=== PATIENT | female | born 1975 | race Caucasian/White ===

== ENCOUNTER → 2019-03-02 | Outpatient (REF) | payer OTHER ==
[~2019-03-02] MED LIST: COLA100C2; IBUP800T; MILKSUS; VICO5TAB
[2019-03-02 20:17] LABS: BASO # 0.1 10^3/uL (0.0-0.2); BASO % 0.8 % (0.0-1.0); EOS # 0.1 10^3/uL (0.0-0.50); EOS % 1.3 % (0.0-3.0); HEMATOCRIT 42.7 % (36.0-47.0); HEMOGLOBIN 14.8 g/dl (12.0-15.5); LYMPH # 2.2 10^3/uL (1.5-4.5); MEAN CORPUSCULAR HEMOGLOBIN 33.1 pg (27.0-33.0); MEAN CORPUSCULAR HGB CONC 34.7 g/dl (32.0-36.5); MEAN CORPUSCULAR VOLUME 95.5 fl (80.0-96.0); MONO # 0.6 10^3/uL (0.0-0.8); MONO % 8.9 % (0.0-5.0); NEUTROPHILS # 3.4 10^3/uL (1.8-7.7); NEUTROPHILS % 53.7 % (36.0-66.0); PLATELET COUNT, AUTOMATED 337 10^3/uL (150-450); RED BLOOD COUNT 4.47 10^6/uL (4.00-5.40); WHITE BLOOD COUNT 6.4 10^3/uL (4.0-10.0)
[2019-03-02 20:20] LABS: APPEARANCE, URINE CLEAR (CLEAR); BACTERIA, URINE AUTO NEGATIVE (NEGATIVE); BILIRUBIN, URINE AUTO NEGATIVE (NEGATIVE); BLOOD, URINE BLOOD NEGATIVE (NEGATIVE); COLOR, URINE YELLOW (YELLOW); GLUCOSE, URINE (UA) AUTO NEGATIVE (NEGATIVE); KETONE, URINE AUTO TRACE mg/dL (NEGATIVE); LEUKOCYTE ESTERASE, URINE AUTO NEGATIVE (NEGATIVE); NITRITE, URINE AUTO NEGATIVE (NEGATIVE); PROTEIN, URINE AUTO NEGATIVE (NEGATIVE); RBC, URINE AUTO 0 /HPF (0-3); SPECIFIC GRAVITY URINE AUTO 1.021 (1.002-1.035); SQUAMOUS EPITHELIAL CELL UR AU 1 /HPF (0-6); UROBILINOGEN, URINE AUTO 0.2 mg/dL (0.0-2.0); WBC, URINE AUTO 0 /HPF (0-3)
[2019-03-02 20:22] LABS: BLOOD UREA NITROGEN 15 MG/DL (7-18); CALCIUM LEVEL 8.6 MG/DL (8.5-10.1); CARBON DIOXIDE LEVEL 28 MEQ/L (21-32); CHLORIDE LEVEL 107 MEQ/L (98-107); CREATININE FOR GFR 0.82 MG/DL (0.55-1.30); GLOMERULAR FILTRATION RATE > 60.0 (>58); GLUCOSE, FASTING 105 MG/DL (70-100); POTASSIUM SERUM 4.2 MEQ/L (3.5-5.1); SODIUM LEVEL 141 MEQ/L (136-145)
[2019-03-02 20:51] LABS: MALB URINE SIEMENS 6.7 MG/L; MAU/CREAT RATIO 4.9 MCG/MG (0.0-30.0); TOTAL PROTEIN,RANDOM URINE 9.7 MG/DL (0.0-12.0)
[2019-03-02 21:10] LABS: HEMOGLOBIN A1c 5.4 %
== END ==
LOC: M LABDRWAD 19:26
PROVIDERS: ATTEND Internal Medicine Nephrology
DX: Z00.5 Encounter for examination of potential donor of organ and tissue (principal)

== ENCOUNTER 2020-11-29 11:37 | Emergency (ER) | payer OTHER, BC ==
[~2020-11-29] VITALS: Ht 160 cm; Wt 59.1 kg
--- NOTE | 2020-11-29 12:25 | REP ---
INDICATION: right hand lac from box toe flanger stitchdowns COMPARISON: None. TECHNIQUE: Four views right hand. FINDINGS: There is no evidence of acute fracture, dislocation, or intrinsic bone disease.Bandaging material is seen on the medial right hand. There is no radiopaque foreign body in the soft tissues. IMPRESSION: No fracture or dislocation. No radiopaque foreign body in the soft tissues. <Electronically signed by Paul Light > 11/29/20 0775
[2020-11-29] MEDS ORDERED: LIDOCAINE W/EPINEPHRINE 1% 20ML VIAL SC ONE (12:35)
[2020-11-29 13:34] VITALS: BP 165/96
== END 2020-11-29 14:00 | disposition home or self-care (01) ==
LOC: M ED 11:37
DX: S61.411A Laceration without foreign body of right hand, initial encounter (principal); W26.8XXA Contact with other sharp object(s), not elsewhere classified, initial encounter; Y92.89 Other specified places as the place of occurrence of the external cause; Y93.89 Activity, other specified; Y99.8 Other external cause status

== ENCOUNTER → 2020-12-03 | Outpatient (CLI) | payer BC, OTHER ==
--- NOTE | 2020-12-03 10:46 | REP ---
INDICATION: LACERATION INJURY, ? ULNAR NERVE INJURY. Date of injury 29 Nov 2020. History provided is s/p suturing after 6 cm laceration longitudinally along the right hypothenar eminence and ulnar aspect of the right wrist. Reduced motor strength and reduced sensation 4th and 5th digits along the ulnar nerve distribution question ulnar nerve injury. COMPARISON: None. TECHNIQUE: Axial, coronal, and sagittal imaging planes utilized. T1 and T2 weighted sequences are included with without fat saturation. Sequences include turbo spin echo and gradient echo images. FINDINGS: Cortical and medullary bone signal intensity are normal. No evidence of occult fracture is seen. Carpal tunnel and its contents appear intact. Median nerve is unremarkable. Transverse carpal ligament appears intact. However, at the level of Guyon's canal there is thickening and some angulation with a superficial granulation tissue in the palm Rodney brevis a and along the soft tissue superficial to the ulnar nerve distribution. No fluid collection is seen. There is adjacent T2 weighted edema in the thenar soft tissues. No wes hematoma is seen. I am not able to identify a actual discontinuity in the ulnar nerve but the findings suggests that the laceration may have been at this level. No tendon disruption is appreciated. No MRI evidence of aneurysm is seen. Study is otherwise unremarkable. IMPRESSION: Soft tissue edema/slight deformity along the course of the ulnar artery at the level of Guyon's canal as above suggesting the location of recent soft tissue injury. The ulnar nerve is not identified in sufficient detail to ascertain aid whether a discontinuity exists. No tendon disruption is seen. <Electronically signed by Jovan Prajapati > 12/03/20 [id number]
--- NOTE | 2020-12-03 10:58 | REP ---
INDICATION: LACERATION INJURY, ? ULNAR NERVE INJURY. Date of injury 29 Nov 2020. Status post suturing for 6 cm laceration longitudinally oriented along the right hypo the Mar eminence and ulnar aspect of the right wrist. Reduced motor and and sensation ulnar nerve distribution. COMPARISON: Comparison is made with MR wrist acquisition from the same date.. TECHNIQUE: Axial, coronal, and sagittal imaging planes utilized. T1 and T2 weighted scans are included with without fat saturation. FINDINGS: Please refer to MRI report of wrist study from the same date. Soft tissue edema and slight deformity at the level of Guyon's canal as described in detail on the wrist study. Distal to this, there is no evidence of soft tissue mass or cyst. Thenar soft tissue edema is noted extending along the volar in on the ulnar aspect of the wrist and the laceration plane is better visualized distal to and ulnar are with respect to the level of Guyon's canal. No hematoma or seroma is seen. No occult fracture is seen. No tendon disruption is appreciated. There is however a triangular shaped low T2 signal intensity focus in the muscle of the hypothenar soft tissues. This measures 8 mm by 3 mm x 7 mm.. It is quite low in T2 signal and subtly hypointense to skeletal muscle on T1 signal intensity. It is surrounded by T2 hyperintense edema. Possibilities include retained foreign body. IMPRESSION: Soft tissue edema in the hypothenar soft tissues with visualization of the dermal laceration ulnar and distal to the level of Guyon's canal. See MR wrist report. There is a somewhat triangular-shaped low T2 signal intensity focus in the thenar musculature just deep to the dermal disruption from the laceration. This may be a foreign body. Hypothenar soft tissue ultrasound suggested. <Electronically signed by Jovan Prajapati > 12/03/20 [id number]
== END ==
LOC: M RAD 08:30
PROVIDERS: ATTEND Family Medicine
DX: L90.5 Scar conditions and fibrosis of skin (principal); M79.89 Other specified soft tissue disorders; S61.511D Laceration without foreign body of right wrist, subsequent encounter; X58.XXXD Exposure to other specified factors, subsequent encounter; Y92.9 Unspecified place or not applicable

== ENCOUNTER → 2020-12-19 | Outpatient (REF) | payer BC ==
[2020-12-19 18:27] LABS: HEMATOCRIT 44.6 % (36.0-47.0); HEMOGLOBIN 14.6 g/dl (12.0-15.5); MEAN CORPUSCULAR HEMOGLOBIN 31.3 pg (27.0-33.0); MEAN CORPUSCULAR HGB CONC 32.7 g/dl (32.0-36.5); MEAN CORPUSCULAR VOLUME 95.7 fl (80.0-96.0); PLATELET COUNT, AUTOMATED 310 10^3/uL (150-450); RED BLOOD COUNT 4.66 10^6/uL (4.00-5.40); WHITE BLOOD COUNT 5.9 10^3/uL (4.0-10.0)
[2020-12-19 19:49] LABS: FREE T4 0.87 NG/DL (0.76-1.46); THYROID STIMULATING HORMONE 0.536 uIU/ML (0.358-3.740); TOTAL 25(OH) VITAMIN D 13.8 NG/ML (30.0-100.0)
== END ==
LOC: M PLALAB 14:07
PROVIDERS: ATTEND Nurse Practitioner Women's Health
DX: N95.1 Menopausal and female climacteric states (principal); R61 Generalized hyperhidrosis

== ENCOUNTER → 2021-03-23 | Outpatient (CLI) | payer BC | LOC: M PLALAB 15:37 | PROVIDERS: ATTEND Nurse Practitioner Women's Health | DX: R61 Generalized hyperhidrosis (principal) ==

== ENCOUNTER → 2021-03-23 | Outpatient (CLI) | payer BC ==
--- NOTE | 2021-03-24 08:51 | REP ---
INDICATION: NASIMA SCR MAMMO//Z12.31. COMPARISON: None TECHNIQUE: Digital screening mammography was carried out bilaterally in the CC and MLO projections in both 2D and 3D modalities. Today's examination is initial screening examination. By history, the patient has no complaints of a palpable breast abnormality or other significant breast complaints. FINDINGS: The breasts are symmetric in size and shape. Scattered dense heterogenous fibroglandular elements are seen bilaterally. Benign calcifications are seen bilaterally. In the upper outer quadrant of the left breast there is a potential density. This is seen best on DBT imaging. No other suspicious features are seen in either breast. The Volpara volumetric breast density pattern is b. IMPRESSION: BIRADS/ACR category 0 mammogram. Potential density in the left breast as described above and for which diagnostic digital DBT spot compression views are recommended in the CC and MLO projections along with diagnostic ultrasonography if indicated. This patient's Tyrer-Cuzick lifetime breast cancer risk assessment score is 8.6%. This mammogram was interpreted with the aid of an FDA-approved computer-aided detection system. The patient states she had a clinical breast exam in February 2021. The patient letter being requested is M0. RECOMMENDATION: As above <Electronically signed by Kavin Cordova > 03/24/21 0816
== END ==
LOC: M WHC 16:05
PROVIDERS: ATTEND Nurse Practitioner Women's Health
DX: Z12.31 Encounter for screening mammogram for malignant neoplasm of breast (principal)

== ENCOUNTER → 2021-03-31 | Outpatient (CLI) | payer BC | LOC: M WHC 14:34 | PROVIDERS: ATTEND Nurse Practitioner Women's Health | DX: Z12.31 Encounter for screening mammogram for malignant neoplasm of breast (principal) ==

== ENCOUNTER → 2022-11-29 | Outpatient (CLI) | payer BC | LOC: M WHC 07:01 | PROVIDERS: ATTEND Internal Medicine | DX: E04.1 Nontoxic single thyroid nodule (principal); Z80.8 Family history of malignant neoplasm of other organs or systems ==

== ENCOUNTER → 2023-03-12 | Outpatient (CLI) | payer BC | LOC: M WHC 14:15 | PROVIDERS: ATTEND Advanced Practice Midwife | DX: Z12.31 Encounter for screening mammogram for malignant neoplasm of breast (principal) ==

== ENCOUNTER → 2023-08-02 | Outpatient (CLI) | payer BC | LOC: M PLAIMG 12:33 | PROVIDERS: ATTEND Physician Assistant | DX: J32.8 Other chronic sinusitis (principal); J34.89 Other specified disorders of nose and nasal sinuses; J34.2 Deviated nasal septum ==

== ENCOUNTER → 2024-06-05 | Outpatient (CLI) | payer BC | LOC: M WUC 09:53 | PROVIDERS: ATTEND Physician Assistant | DX: M79.672 Pain in left foot (principal) ==